=== PATIENT | female | born 1955 | race Caucasian/White ===

== ENCOUNTER → 2018-02-24 | Outpatient (CLI) | payer BC ==
--- NOTE | 2018-02-27 09:53 | MM ---
Reason for exam: screening (asymptomatic). Last mammogram was performed 2 years and 8 months ago. History: Patient is postmenopausal. Physical Findings: A clinical breast exam by your physician is recommended on an annual basis and results should be correlated with mammographic findings. MG Screening Mammo w CAD Bilateral CC and MLO view(s) were taken. Prior study comparison: July 24, 2008, bilateral digital screening mammogram. May 29, 2002, bilateral screening mammogram. There are scattered fibroglandular densities. No significant changes when compared with prior studies. ASSESSMENT: Benign, BI-RAD 2 RECOMMENDATION: Routine screening mammogram of both breasts in 1 year.
== END | disposition home or self-care (01) ==
LOC: RADMAMWWP 13:53
PROVIDERS: ATTEND Family Medicine
DX: Z12.31 Encounter for screening mammogram for malignant neoplasm of breast (principal)
CPT/HCPCS: 77067

== ENCOUNTER 2019-08-05 15:08 | Emergency (ER) | payer OTHER, BC ==
[2019-08-05] MEDS ORDERED: HYDROcodone/APAP 5-325MG 1 EACH TAB PO STA (15:17)
[2019-08-05 15:26] VITALS: RESP 18
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
[2019-08-05 16:07] LABS: Glucose,Whole Blood 89 mg/dL (75-99)
[2019-08-05 16:21] VITALS: BP 172/83; PULSE 72
[2019-08-05 16:24] VITALS: TEMP 98.3
== END 2019-08-05 16:39 | disposition home or self-care (01) ==
LOC: EC 15:08
DX: S16.1XXA Strain of muscle, fascia and tendon at neck level, initial encounter (principal); G31.9 Degenerative disease of nervous system, unspecified; V89.2XXA Person injured in unspecified motor-vehicle accident, traffic, initial encounter; Y92.410 Unspecified street and highway as the place of occurrence of the external cause
CPT/HCPCS: 36415; 70450; 72125; 93005; 99284

== ENCOUNTER → 2019-10-30 | Outpatient (CLI) | payer BC ==
--- NOTE | 2019-10-30 08:32 | US ---
EXAMINATION TYPE: US abdomen complete DATE OF EXAM: 10/30/2019 COMPARISON: US CLINICAL HISTORY: D72.819 leukocytopenia, D69.6 Thrombocytopenia; diabetic; HTN; TIA; high cholestero l; meds for depression and anxiety; HT5'7", [id number] EXAM MEASUREMENTS: Liver Length: 16.6 cm Gallbladder Wall: 0.2 cm CBD: 0.4 cm Spleen: 17.1 x 16.4 x 6.1 cm Right Kidney: 9.6 x 5.6 x 4.1 cm Left Kidney: 10.7 x 5.1 x 4.9 cm Pancreas: Within normal limits Liver: There is increased echogenicity of the hepatic parenchyma with diminished visualization of th e portal triads most commonly relating to hepatic steatosis and limiting evaluation for underlying he patic masses. Gallbladder: wnl, Phrygian Cap is noted Evidence for sonographic Shelby's sign: no CBD: wnl Spleen: enlarged as is size is greater than 14.0 cm Right Kidney: No hydronephrosis or masses seen Left Kidney: No hydronephrosis or masses seen Upper IVC: wnl Abd Aorta: size is wnl, intimal wall thickening is noted distally IMPRESSION: 1. Splenomegaly with the spleen measuring up to 17.1 cm. 2. Sonographic findings most commonly related to hepatic steatosis. Correlate with liver function guerda ts.
== END | disposition home or self-care (01) ==
LOC: RADUSWWP 06:51
PROVIDERS: ATTEND Internal Medicine Hematology & Oncology
DX: K76.0 Fatty (change of) liver, not elsewhere classified (principal); R16.1 Splenomegaly, not elsewhere classified; D72.819 Decreased white blood cell count, unspecified; D69.6 Thrombocytopenia, unspecified
CPT/HCPCS: 76700

== ENCOUNTER → 2021-08-03 | Outpatient (CLI) | payer BC, MEDICARE ==
[2021-08-03 15:39] LABS: Basophils # (A) 0 X 10*3/uL (0.00-0.10); Basophils % (A) 0 %; Eosinophils # (A) 0.02 X 10*3/uL (0.04-0.35); Eosinophils % (A) 0.8 %; HCT 39.2 % (37.2-46.3); HGB 12.8 g/dL (12.0-15.0); Lymphocytes # (A) 0.77 X 10*3/uL (0.90-5.00); Lymphocytes % (A) 29.6 %; MCH 32.2 pg (27.0-32.0); MCHC 32.7 g/dL (32.0-37.0); MCV 98.5 fL (80.0-97.0); Mean Platelet Volume 11.2 fL (9.5-12.2); Monocytes # (A) 0.18 X 10*3/uL (0.20-1.00); Monocytes % (A) 6.9 %; Neutrophils # (A) 1.62 X 10*3/uL (1.80-7.70); Neutrophils % (A) 62.3 %; Platelet Count 102 X 10*3/uL (140-440); RBC 3.98 X 10*6/uL (4.10-5.20); RDW 11.8 % (11.5-14.5)
[2021-08-03 16:28] LABS: INR 1.04 (0.90-1.11); Prothrombin Time 11.3 sec (9.9-11.9)
== END | disposition home or self-care (01) ==
LOC: LABWHC1 11:24
PROVIDERS: ATTEND Internal Medicine Gastroenterology
DX: R16.2 Hepatomegaly with splenomegaly, not elsewhere classified (principal)
CPT/HCPCS: 36415; 80053; 82105; 82140; 85025; 85610

== ENCOUNTER 2022-06-22 14:00 | Emergency (ER) | payer BC, MEDICARE ==
[2022-06-23] MEDS ORDERED: SODIUM CHLORIDE 0.9% 500 ML 500 ML IV STA (06:16)
--- NOTE | 2022-06-23 06:23 | ED ---
General Adult HPI - General Stated complaint: not feeling well Time Seen by Provider: 06/23/22 06:01 Source: patient, RN notes reviewed Mode of arrival: ambulatory Limitations: no limitations - History of Present Illness Initial comments: This a 66-year-old female presents emergency Department with chief complaint of abdominal pain, possible mass. Patient states she hadn't been feeling well with her PCP Dr. Salazar palpated her abdomen felt there may be a mass or told her that her liver dropped. Patient states she has known liver cirrhosis from fatty liver disease. Patient states that she has no increasing nausea vomiting diarrhea constipation or change in bowel habits no dysuria no hematuria no fevers chills no chest pain she does complain of mild upper abdominal disco mfort. - Related Data Allergies Allergy/AdvReac Type Severity Reaction Status Date / Time No Known Allergies Allergy Verified 06/23/22 06:34 Review of Systems ROS Statement: Those systems with pertinent positive or pertinent negative responses have been documented in the HPI. ROS Other: All systems not noted in ROS Statement are negative. General Exam Limitations: no limitations General appearance: alert, in no apparent distress Head exam: Present: atraumatic, normocephalic, normal inspection Eye exam: Present: normal appearance, PERRL, EOMI. Absent: scleral icterus, conjunctival injection, periorbital swelling ENT exam: Present: normal exam, mucous membranes moist Respiratory exam: Present: normal lung sounds bilaterally. Absent: respiratory distress, wheezes, rales, rhonchi, stridor Cardiovascular Exam: Present: regular rate, normal rhythm, normal heart sounds. Absent: systolic murmur, diastolic murmur, rubs, gallop, clicks GI/Abdominal exam: Present: soft, tenderness, normal bowel sounds. Absent: distended, guarding, rebound, rigid Back exam: Absent: CVA tenderness (R), CVA tenderness (L) Neurological exam: Present: alert Skin exam: Present: warm, dry, intact, normal color. Absent: rash Medical Decision Making - Medical Decision Making 66-year-old female presents emergency Department for possible mass. CT of the abdomen and pelvis are obtained does show enlarged spleen, liver patient has known large liver from fatty liver disease, liver cirrhosis. Patient labs show no acute findings remaining CT did not reveal any acute findings. Patient will be discharged in stable condition return parameters were discussed. - Lab Data Result diagrams: 06/23/22 06:44 06/23/22 06:44 Lab Results 06/23/22 06/23/22 06/23/22 Range/Units 06:44 06:44 06:44 WBC 3.6 L (3.8-10.6) k/uL RBC 4.09 (3.80-5.40) m/uL Hgb 13.3 (11.4-16.0) gm/dL Hct 39.1 (34.0-46.0) % MCV 95.5 (80.0-100.0) fL MCH 32.6 (25.0-35.0) pg MCHC 34.1 (31.0-37.0) g/dL RDW 12.9 (11.5-15.5) % Plt Count 108 L (150-450) k/uL MPV 8.1 Neutrophils % 73 % Lymphocytes % 16 % Monocytes % 8 % Eosinophils % 1 % Basophils % 0 % Neutrophils # 2.6 (1.3-7.7) k/uL Lymphocytes # 0.6 L (1.0-4.8) k/uL Monocytes # 0.3 (0-1.0) k/uL Eosinophils # 0.0 (0-0.7) k/uL Basophils # 0.0 (0-0.2) k/uL PT 10.8 (9.0-12.0) sec INR 1.0 (<1.2) APTT 25.5 (22.0-30.0) sec Sodium 136 L (137-145) mmol/L Potassium 4.6 (3.5-5.1) mmol/L Chloride 102 (98-107) mmol/L Carbon Dioxide 25 (22-30) mmol/L Anion Gap 9 mmol/L BUN 21 H (7-17) mg/dL Creatinine 0.86 (0.52-1.04) mg/dL Est GFR (CKD-EPI)AfAm 82 (>60 ml/min/1.73 sqM) Est GFR (CKD-EPI)NonAf 71 (>60 ml/min/1.73 sqM) Glucose 119 H (74-99) mg/dL Calcium 8.9 (8.4-10.2) mg/dL Total Bilirubin 0.4 (0.2-1.3) mg/dL AST 39 H (14-36) U/L ALT 39 H (4-34) U/L Alkaline Phosphatase 114 (38-126) U/L Total Protein 7.0 (6.3-8.2) g/dL Albumin 4.2 (3.5-5.0) g/dL Lipase 145 (23-300) U/L Disposition Clinical Impression: Hepatomegaly Disposition: HOME SELF-CARE Condition: Stable Instructions (If sedation given, give patient instructions): Non-Alcoholic Fatty Liver Disease (ED) Additional Instructions: Please return to the Emergency Department if symptoms worsen or any other concerns. Is patient prescribed a controlled substance at d/c from ED?: No Referrals: None,Stated [REFERRING] - 1-2 days Time of Disposition: 08:41
[2022-06-23 07:19] LABS: Basophils % (A) 0 %; Eosinophils % (A) 1 %; HCT 39.1 % (34.0-46.0); HGB 13.3 gm/dL (11.4-16.0); Lymphocytes # (A) 0.6 k/uL (1.0-4.8); Lymphocytes % (A) 16 %; MCH 32.6 pg (25.0-35.0); MCHC 34.1 g/dL (31.0-37.0); MCV 95.5 fL (80.0-100.0); Mean Platelet Volume 8.1; Monocytes # (A) 0.3 k/uL (0-1.0); Monocytes % (A) 8 %; Neutrophils # (A) 2.6 k/uL (1.3-7.7); Neutrophils % (A) 73 %; Platelet Count 108 k/uL (150-450); RBC 4.09 m/uL (3.80-5.40); RDW 12.9 % (11.5-15.5); WBC 3.6 k/uL (3.8-10.6)
[2022-06-23 07:20] LABS: Albumin 4.2 g/dL (3.5-5.0); Calcium 8.9 mg/dL (8.4-10.2); Potassium 4.6 mmol/L (3.5-5.1); Total Bilirubin 0.4 mg/dL (0.2-1.3)
[2022-06-23 07:32] LABS: Partial Thromboplastin Time 25.5 sec (22.0-30.0); Prothrombin Time 10.8 sec (9.0-12.0)
[2022-06-23 08:58] VITALS: BP 174/69; PULSE 74; RESP 18
--- NOTE | 2022-06-24 14:10 | CT ---
EXAMINATION TYPE: CT abdomen pelvis w con DATE OF EXAM: 06/23/2022 COMPARISON: None HISTORY: Abdominal pain with abnormal physical exam CT DLP: 2778.9 mGycm Automated exposure control for dose reduction was used. TECHNIQUE: Helical acquisition of images from the lung bases through the pelvis have been completed. CONTRAST: Patient received 50 cc Isovue-300 IV, no oral contrast FINDINGS: Poor enhancement with contrast could compromise sensitivity. Possible small hiatal hernia p resent. LUNG BASES: No significant abnormality is appreciated. AORTA: No significant abnormality is appreciated. LIVER/GB: Liver is enlarged. Gallbladder is unremarkable.. PANCREAS: Pancreas is somewhat fatty replaced. SPLEEN: There is splenomegaly, AP dimension is approximately 16 cm. ADRENALS: No significant abnormality is seen. KIDNEYS: No significant abnormality is seen. REPRODUCTIVE ORGANS: Not seen BOWEL: Diverticular changes associated with the colon, retained fecal debris present within the colo n FREE AIR: No Free Air visible. ASCITES: None visible. PELVIC ADENOPATHY: None visualized. RETROPERITONEAL ADENOPATHY: No Retroperitoneal Adenopathy visible. URINARY BLADDER: No significant abnormality is seen. OSSEOUS STRUCTURES: There is degenerative disc changes, facet arthropathy especially in the lumbar s pine IMPRESSION: HEPATOSPLENOMEGALY. POSTOP CHANGES. LIMITED CONTRAST ENHANCEMENT, CORRELATE FOR FECAL STASIS. PULMONA RY REPORT OFFERED AT THE TIME OF PERFORMANCE OF THE EXAM
== END 2022-06-23 08:58 | disposition home or self-care (01) ==
LOC: EDSEX → MERGE 14:00 → EC 14:00
DX: R16.0 Hepatomegaly, not elsewhere classified (principal)
CPT/HCPCS: 36415; 80053; 83690; 85025; 85610; 85730; 74177; 99284; 96360; Q9967

== ENCOUNTER → 2024-05-03 | Outpatient (CLI) | payer MEDICARE ==
[2024-05-03 15:40] LABS: ALT 32 U/L (8-44); AST 30 U/L (13-35); Albumin 4.1 g/dL (3.8-4.9); Albumin/Globulin Ratio 1.78 Ratio (1.60-3.17); Alkaline Phosphatase 90 U/L (41-126); BUN/Creat Ratio 15.23 Ratio (12.00-20.00); Blood Urea Nitrogen 19.8 mg/dL (9.0-27.0); Carbon Dioxide 23.3 mmol/L (21.6-31.8); Chloride 102 mmol/L (96-109); Globulin 2.3 g/dL (1.6-3.3); Glucose 99 mg/dL (70-110); Potassium 5.6 mmol/L (3.5-5.5); Sodium 137 mmol/L (135-145); Total Bilirubin 0.3 mg/dL (0.3-1.2); Total Protein 6.4 g/dL (6.2-8.2)
[2024-05-03 15:45] LABS: Basophils # (A) 0.01 X 10*3/uL (0.00-0.10); Basophils % (A) 0.4 %; Eosinophils # (A) 0.03 X 10*3/uL (0.04-0.35); Eosinophils % (A) 1.1 %; HCT 35.1 % (37.2-46.3); HGB 11.8 g/dL (12.0-15.0); Immature Grans, Automated 0 %; Lymphocytes # (A) 0.81 X 10*3/uL (0.90-5.00); MCH 32.5 pg (27.0-32.0); MCHC 33.6 g/dL (32.0-37.0); MCV 96.7 FL (80.0-97.0); Mean Platelet Volume 11.2 FL (9.5-12.2); Monocytes # (A) 0.24 X 10*3/uL (0.20-1.00); Monocytes % (A) 9.2 %; NRBC Per 100 WBC 0 X 10*3/uL (0.00-0.01); Neutrophils # (A) 1.52 X 10*3/uL (1.80-7.70); Neutrophils % (A) 58.3 %; Platelet Count 100 X 10*3/uL (140-440); RBC 3.63 X 10*6/uL (4.10-5.20); RDW 12.1 % (11.5-14.5); WBC 2.61 X 10*3/uL (4.50-10.00)
== END | disposition home or self-care (01) ==
LOC: LABWHC1 12:44
PROVIDERS: ATTEND Family Medicine
DX: I10 Essential (primary) hypertension (principal)
CPT/HCPCS: 36415; 80053; 85025

== ENCOUNTER 2024-12-18 10:21 | Emergency (ER) | payer MEDICARE ==
[2024-12-18 12:10] LABS: INR 1.1 (<1.2); Partial Thromboplastin Time 26.2 sec (22.0-30.0); Prothrombin Time 11.6 sec (10.0-12.5)
--- NOTE | 2024-12-18 12:10 | ED ---
General Adult HPI - General Chief complaint: Upper Respiratory Infection Stated complaint: cough Time Seen by Provider: 12/18/24 10:36 Source: patient, family, RN notes reviewed Mode of arrival: wheelchair Limitations: no limitations - History of Present Illness Initial comments: 69-year-old female presents to the emergency department for evaluation of cough and shortness of breath. Patient states that this has been going on for around 1 week. She states that her coughing is worse when she lies down at night. She does note that it is been improving somewhat. She denies fever, chills, lower extremity edema. She is on Eliquis. She denies missing any doses of her medication. She has a history of cirrhosis of the liver. - Related Data Home Medications Medication Instructions Recorded Confirmed ALPRAZolam [Xanax] 0.25 mg PO HS 07/14/22 07/14/22 Apixaban [Eliquis] 5 mg PO BID 07/14/22 07/14/22 Calcium Carbonate [Calcium] 1,200 mg PO DAILY 07/14/22 07/14/22 Citalopram Hydrobromide [CeleXA] 20 mg PO BID 07/14/22 07/14/22 Ferrous Sulfate [Feosol] 325 mg PO HS 07/14/22 07/14/22 Gabapentin [Neurontin] 400 mg PO BID 07/14/22 07/14/22 Loratadine 10 mg PO DAILY 07/14/22 07/14/22 Multivitamins, Thera [Multivitamin 1 tab PO DAILY 07/14/22 07/14/22 (formulary)] Omeprazole 20 mg PO BID 07/14/22 07/14/22 Simvastatin [Zocor] 20 mg PO HS 07/14/22 07/14/22 Spironolactone 50 mg PO DAILY 07/14/22 07/14/22 Vitamin E (Dl,Tocopheryl Acet) 400 unit PO DAILY 07/14/22 07/14/22 [Vitamin E (400 Iu = 180 mg)] amLODIPine [Norvasc] 10 mg PO DAILY 07/14/22 07/14/22 lisinopriL [Zestril] 20 mg PO DAILY 07/14/22 07/14/22 metFORMIN HCL [Glucophage] 500 mg PO DAILY 07/14/22 07/14/22 rOPINIRole HCL [Requip] 0.5 mg PO HS 07/14/22 07/14/22 rOPINIRole HCL [Requip] 2 mg PO HS 07/14/22 07/14/22 traZODone HCL 100 mg PO HS 07/14/22 07/14/22 Allergies Allergy/AdvReac Type Severity Reaction Status Date / Time No Known Allergies Allergy Verified 06/23/22 11:20 Review of Systems ROS Statement: Those systems with pertinent positive or pertinent negative responses have been documented in the HPI. ROS Other: All systems not noted in ROS Statement are negative. Past Medical History Past Medical History: CVA/TIA, Diabetes Mellitus, GERD/Reflux, Hyperlipidemia, Hypertension, Liver Disease, Osteoarthritis (OA) Additional Past Medical History / Comment(s): Cirrhosis, fatty liver disease, hx ascites. Restless leg syndrome. 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 Hx. heart murmor, irregular heart rate- sees Dr. Bautista History of Any Multi-Drug Resistant Organisms: None Reported Past Surgical History: Hysterectomy Past Anesthesia/Blood Transfusion Reactions: No Reported Reaction Past Psychological History: Anxiety, Bipolar, Depression Smoking Status: Former smoker Past Alcohol Use History: None Reported Past Drug Use History: None Reported General Exam Limitations: no limitations General appearance: alert, in no apparent distress Head exam: Present: atraumatic, normocephalic, normal inspection Eye exam: Present: normal appearance, PERRL, EOMI. Absent: scleral icterus, conjunctival injection, periorbital swelling Course Vital Signs 12/18/24 12/18/24 10:31 13:44 Temperature 98.2 F 98.8 F Pulse Rate 68 82 Respiratory 16 20 Rate Blood Pressure 121/57 98/61 O2 Sat by Pulse 93 L 96 Oximetry Medical Decision Making - Medical Decision Making Was pt. sent in by a medical professional or institution (, PA, [employer], urgent care, hospital, or long term...) When possible be specific @ -No Did you speak to anyone other than the patient for history (EMS, parent, family, police, friend...)? What history was obtained from this source @ -No Did you review nursing and triage notes (agree or disagree)? Why? @ -I reviewed and agree with nursing and triage notes Were old charts reviewed (outside hosp., previous admission, EMS record, old EKG, old radiological studies, urgent care reports/EKG's, long term records)? Report findings @ -No old charts were reviewed Differential Diagnosis (chest pain, altered mental status, abdominal pain women, abdominal pain men, vaginal bleeding, weakness, fever, dyspnea, syncope, headache, dizziness, GI bleed, back pain, seizure, CVA, palpatations, mental health, musculoskeletal)? @ -Differential Dyspnea: Coronary syndrome, arrhythmia, tamponade, asthma, COPD, pulmonary embolism, pneumonia, pneumothorax, pulmonary effusion, anaphylaxis, diabetic ketoacidosis, flailed chest, pulmonary contusion, diaphragmatic rupture, anemia, neuromuscular, this is not meant to be an all-inclusive list. EKG interpreted by me (3pts min.). @ -EKG at 1144 shows sinus rhythm rate 65, [place] 175, QRS 85, QTQTc [id number] X-rays interpreted by me (1pt min.). @ -Chest x-ray shows no evidence of acute process CT interpreted by me (1pt min.). @ -None done U/S interpreted by me (1pt. min.). @ -None done What testing was considered but not performed or refused? (CT, X-rays, U/S, labs)? Why? @ -None What meds were considered but not given or refused? Why? @ -None Did you discuss the management of the patient with other professionals (professionals i.e. , PA, [employer], lab, RT, psych nurse, executive secretary social welfare, full stack engineer, teacher, operations officer trust department, disease case manager rn)? Give summary @ -No Was smoking cessation discussed for >3mins.? @ -No Was critical care preformed (if so, how long)? @ -No Were there social determinants of health that impacted care today? How? (Homelessness, low income, unemployed, alcoholism, drug addiction, transportation, low edu. Level, literacy, decrease access to med. care, assisted, rehab)? @ -No Was there de-escalation of care discussed even if they declined (Discuss DNR or withdrawal of care, Hospice)? DNR status @ -No What co-morbidities impacted this encounter? (DM, HTN, Smoking, COPD, CAD, Cancer, CVA, ARF, Chemo, Hep., AIDS, mental health diagnosis, sleep apnea, morbid obesity)? @ -None Was patient admitted / discharged? Hospital course, mention meds given and route, prescriptions, significant lab abnormalities, going to OR and other pertinent info. @ -Discharge. Patient presented emergency department for evaluation of cough x 1 week.Laboratory studies obtained revealing WBC of 3.5 which is baseline for the patient; normal coagulation studies; BUN 21, creatinine 1.22; BNP within normal limits at 134; patient was negative for COVID, influenza, RSV. Chest x- ray obtained revealing no acute process. Vital signs stable. She will be discharged home. Advised follow-up with her PCP. She is understanding. At this time. Stable at time of discharge. Case discussed with Dr. Navarro. Undiagnosed new problem with uncertain prognosis? @ -No Drug Therapy requiring intensive monitoring for toxicity (Heparin, Nitro, Insulin, Cardizem)? @ -No Were any procedures done? @ -No Diagnosis/symptom? @ -URI Acute, or Chronic, or Acute on Chronic? @ -Acute Uncomplicated (without systemic symptoms) or Complicated (systemic symptoms)? @ -Uncomplicated Side effects of treatment? @ -No Exacerbation, Progression, or Severe Exacerbation? @ -No Poses a threat to life or bodily function? How? (Chest pain, USA, LA, pneumonia, PE, COPD, DKA, ARF, appy, cholecystitis, CVA, Diverticulitis, Homicidal, [place] icidal, threat to staff... and all critical care pts) @ -No - Lab Data Result diagrams: 12/18/24 11:38 12/18/24 11:38 Lab Results 12/18/24 12/18/24 12/18/24 Range/Units 11:38 11:38 11:38 WBC 3.5 L (3.8-10.6) k/uL RBC 4.24 (3.80-5.40) m/uL Hgb 13.0 (11.4-16.0) gm/dL Hct 41.4 (34.0-46.0) % MCV 97.5 (80.0-100.0) fL MCH 30.7 (25.0-35.0) pg MCHC 31.5 (31.0-37.0) g/dL RDW 11.9 (11.5-15.5) % Plt Count 130 L (150-450) k/uL MPV 8.0 Neutrophils % 71 % Lymphocytes % 19 % Monocytes % 7 % Eosinophils % 1 % Basophils % 0 % Neutrophils # 2.5 (1.3-7.7) k/uL Lymphocytes # 0.7 L (1.0-4.8) k/uL Monocytes # 0.3 (0-1.0) k/uL Eosinophils # 0.1 (0-0.7) k/uL Basophils # 0.0 (0-0.2) k/uL PT 11.6 (10.0-12.5) sec INR 1.1 (<1.2) APTT 26.2 (22.0-30.0) sec Sodium 136 L (137-145) mmol/L Potassium 4.7 (3.5-5.1) mmol/L Chloride 100 (98-107) mmol/L Carbon Dioxide 29 (22-30) mmol/L Anion Gap 7 mmol/L BUN 21 H (7-17) mg/dL Creatinine 1.22 H (0.52-1.04) mg/dL Est GFR (CKD-EPI)AfAm 52 (>60 ml/min/1.73 sqM) Est GFR (CKD-EPI)NonAf 45 (>60 ml/min/1.73 sqM) Glucose 103 H (74-99) mg/dL Calcium 9.1 (8.4-10.2) mg/dL Total Bilirubin 0.7 (0.2-1.3) mg/dL AST 36 (14-36) U/L ALT 42 H (4-34) U/L Alkaline Phosphatase 96 (38-126) U/L NT-Pro-B Natriuret Pep 134 pg/mL Total Protein 6.9 (6.3-8.2) g/dL Albumin 4.1 (3.5-5.0) g/dL Influenza Type A (PCR) (Not Detectd) Influenza Type B (PCR) (Not Detectd) RSV (PCR) (Not Detectd) SARS-CoV-2 (PCR) (Not Detectd) 12/18/24 Range/Units 11:38 WBC (3.8-10.6) k/uL RBC (3.80-5.40) m/uL Hgb (11.4-16.0) gm/dL Hct (34.0-46.0) % MCV (80.0-100.0) fL MCH (25.0-35.0) pg MCHC (31.0-37.0) g/dL RDW (11.5-15.5) % Plt Count (150-450) k/uL MPV Neutrophils % % Lymphocytes % % Monocytes % % Eosinophils % % Basophils % % Neutrophils # (1.3-7.7) k/uL Lymphocytes # (1.0-4.8) k/uL Monocytes # (0-1.0) k/uL Eosinophils # (0-0.7) k/uL Basophils # (0-0.2) k/uL PT (10.0-12.5) sec INR (<1.2) APTT (22.0-30.0) sec Sodium (137-145) mmol/L Potassium (3.5-5.1) mmol/L Chloride (98-107) mmol/L Carbon Dioxide (22-30) mmol/L Anion Gap mmol/L BUN (7-17) mg/dL Creatinine (0.52-1.04) mg/dL Est GFR (CKD-EPI)AfAm (>60 ml/min/1.73 sqM) Est GFR (CKD-EPI)NonAf (>60 ml/min/1.73 sqM) Glucose (74-99) mg/dL Calcium (8.4-10.2) mg/dL Total Bilirubin (0.2-1.3) mg/dL AST (14-36) U/L ALT (4-34) U/L Alkaline Phosphatase (38-126) U/L NT-Pro-B Natriuret Pep pg/mL Total Protein (6.3-8.2) g/dL Albumin (3.5-5.0) g/dL Influenza Type A (PCR) Not Detected (Not Detectd) Influenza Type B (PCR) Not Detected (Not Detectd) RSV (PCR) Not Detected (Not Detectd) SARS-CoV-2 (PCR) Not Detected (Not Detectd) Disposition Clinical Impression: URI (upper respiratory infection) Disposition: HOME SELF-CARE Condition: Stable Instructions (If sedation given, give patient instructions): Upper Respiratory Infection (ED) Additional Instructions: Please follow up with your primary care provider. Return to the emergency department for new or worsening symptoms. Is patient prescribed a controlled substance at d/c from ED?: No Referrals: Moses Salazar MD [Primary Care Provider] - 1-2 days
[2024-12-18 12:11] LABS: Basophils % (A) 0 %; Eosinophils # (A) 0.1 k/uL (0-0.7); Eosinophils % (A) 1 %; HCT 41.4 % (34.0-46.0); Lymphocytes # (A) 0.7 k/uL (1.0-4.8); Lymphocytes % (A) 19 %; MCH 30.7 pg (25.0-35.0); MCHC 31.5 g/dL (31.0-37.0); MCV 97.5 fL (80.0-100.0); Monocytes # (A) 0.3 k/uL (0-1.0); Monocytes % (A) 7 %; Neutrophils # (A) 2.5 k/uL (1.3-7.7); Neutrophils % (A) 71 %; Platelet Count 130 k/uL (150-450); RBC 4.24 m/uL (3.80-5.40); RDW 11.9 % (11.5-15.5); WBC 3.5 k/uL (3.8-10.6)
[2024-12-18 12:31] LABS: Influenza A Not Detected (Not Detectd); Influenza B Not Detected (Not Detectd); RSV Not Detected (Not Detectd)
--- NOTE | 2024-12-18 12:35 | XR ---
EXAMINATION TYPE: XR chest 2V DATE OF EXAM: 12/18/2024 12:27 PM COMPARISON: None TECHNIQUE: XR chest 2V Frontal and lateral views of the chest. CLINICAL INDICATION:Female, 69 years old with history of difficulty breathing; FINDINGS: Lungs/Pleura: There is no evidence of pleural effusion, focal consolidation, or pneumothorax. Pulmonary vascularity: Unremarkable. Heart/mediastinum: Cardiomediastinal silhouette is unremarkable. Musculoskeletal: Multiple level degenerative disc disease changes seen throughout the spine. IMPRESSION: No acute cardiopulmonary disease/process. [facility], , 12/18/2024 12:32 PM
[2024-12-18 12:46] LABS: ALT 42 U/L (4-34); AST 36 U/L (14-36); African American GFR (CKD) 52 (>60 ml/min/1.73 sqM); Albumin 4.1 g/dL (3.5-5.0); Alkaline Phosphatase 96 U/L (38-126); Anion Gap 7 mmol/L; Blood Urea Nitrogen 21 mg/dL (7-17); Calcium 9.1 mg/dL (8.4-10.2); Carbon Dioxide 29 mmol/L (22-30); Chloride 100 mmol/L (98-107); Glucose 103 mg/dL (74-99); Non-African American GFR(CKD) 45 (>60 ml/min/1.73 sqM); Potassium 4.7 mmol/L (3.5-5.1); Sodium 136 mmol/L (137-145); Total Bilirubin 0.7 mg/dL (0.2-1.3); Total Protein 6.9 g/dL (6.3-8.2)
[2024-12-18 12:51] LABS: NT-Pro-B-Type Natriuretic Pept 134 pg/mL
[2024-12-18 13:44] VITALS: BP 98/61; PULSE 82; RESP 20; TEMP 98.8
== END 2024-12-18 13:58 | disposition home or self-care (01) ==
LOC: EC 10:21
DX: J06.9 Acute upper respiratory infection, unspecified (principal); Z87.891 Personal history of nicotine dependence
CPT/HCPCS: 36415; 71046; 80053; 83880; 85025; 85610; 85730; 87636; 93005; 99284

== ENCOUNTER 2025-04-21 11:37 | Emergency (ER) | payer MEDICARE ==
[2025-04-21 11:56] VITALS: RESP 18; TEMP 98.1
--- NOTE | 2025-04-21 12:20 | ED ---
Nausea/Vomiting/Diarrhea HPI - General Chief complaint: Nausea/Vomiting/Diarrhea Stated complaint: Diarrhea Time Seen by Provider: 04/21/25 11:59 Source: patient, RN notes reviewed Mode of arrival: ambulatory Limitations: no limitations - History of Present Illness Initial comments: This is a 69-year-old female who presents to the emergency department for diarrhea. States that it started 6 days ago. She does have some generalized cramping and rumbling in her abdomen, but no johnnie pain. She has nausea but no vomiting. She tried taking Imodium, but states that it is no longer effective. The stool was initially somewhat formed but is now largely water. Believes that she is going 3 or 4 times a day. Denies any recent antibiotic use. However, she did just start Ozempic 3 weeks ago. MD complaint: nausea, diarrhea - Related Data Home Medications Medication Instructions Recorded Confirmed ALPRAZolam [Xanax] 0.25 mg PO HS 07/14/22 07/14/22 Apixaban [Eliquis] 5 mg PO BID 07/14/22 07/14/22 Calcium Carbonate [Calcium] 1,200 mg PO DAILY 07/14/22 07/14/22 Citalopram Hydrobromide [CeleXA] 20 mg PO BID 07/14/22 07/14/22 Ferrous Sulfate [Feosol] 325 mg PO HS 07/14/22 07/14/22 Gabapentin [Neurontin] 400 mg PO BID 07/14/22 07/14/22 Loratadine 10 mg PO DAILY 07/14/22 07/14/22 Multivitamins, Thera [Multivitamin 1 tab PO DAILY 07/14/22 07/14/22 (formulary)] Omeprazole 20 mg PO BID 07/14/22 07/14/22 Simvastatin [Zocor] 20 mg PO HS 07/14/22 07/14/22 Spironolactone 50 mg PO DAILY 07/14/22 07/14/22 Vitamin E (Dl,Tocopheryl Acet) 400 unit PO DAILY 07/14/22 07/14/22 [Vitamin E (400 Iu = 180 mg)] amLODIPine [Norvasc] 10 mg PO DAILY 07/14/22 07/14/22 lisinopriL [Zestril] 20 mg PO DAILY 07/14/22 07/14/22 metFORMIN HCL [Glucophage] 500 mg PO DAILY 07/14/22 07/14/22 rOPINIRole HCL [Requip] 0.5 mg PO HS 07/14/22 07/14/22 rOPINIRole HCL [Requip] 2 mg PO HS 07/14/22 07/14/22 traZODone HCL 100 mg PO HS 07/14/22 07/14/22 Previous Rx's Medication Instructions Recorded Benzonatate [Tessalon Perles] 100 mg PO TID PRN #12 capsule 12/18/24 Dicyclomine [Bentyl] 20 mg PO QID PRN #30 tablet 04/21/25 Diphenoxylate HCl/Atropine 1 - 2 tab PO QID PRN 3 Days #24 tab 04/21/25 [Lomotil 2.5-0.025 mg Tablet] Ondansetron Odt [Zofran Odt] 4 mg PO Q8HR PRN #15 tab 04/21/25 Allergies Allergy/AdvReac Type Severity Reaction Status Date / Time No Known Allergies Allergy Verified 04/21/25 11:56 Review of Systems ROS Statement: Those systems with pertinent positive or pertinent negative responses have been documented in the HPI. ROS Other: All systems not noted in ROS Statement are negative. Past Medical History Past Medical History: CVA/TIA, Diabetes Mellitus, GERD/Reflux, Hyperlipidemia, Hypertension, Liver Disease, Osteoarthritis (OA) Additional Past Medical History / Comment(s): Cirrhosis, fatty liver disease, hx ascites. Restless leg syndrome. 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 Hx. heart murmor, irregular heart rate- sees Dr. Bautista History of Any Multi-Drug Resistant Organisms: None Reported Past Surgical History: Hysterectomy Past Anesthesia/Blood Transfusion Reactions: No Reported Reaction Past Psychological History: Anxiety, Bipolar, Depression Smoking Status: Former smoker Past Alcohol Use History: None Reported Past Drug Use History: None Reported General Exam Limitations: no limitations General appearance: alert, in no apparent distress Head exam: Present: atraumatic, normocephalic, normal inspection Respiratory exam: Present: normal lung sounds bilaterally. Absent: respiratory distress, wheezes, rales, rhonchi, stridor Cardiovascular Exam: Present: regular rate, normal rhythm GI/Abdominal exam: Present: soft. Absent: distended, tenderness Neurological exam: Present: alert, oriented X3, CN II-XII intact Psychiatric exam: Present: normal affect, normal mood Skin exam: Present: warm, dry, intact, normal color. Absent: rash Course Vital Signs 04/21/25 04/21/25 11:53 14:23 Temperature 98.1 F Pulse Rate 68 65 Respiratory 18 18 Rate Blood Pressure 113/69 127/58 O2 Sat by Pulse 96 96 Oximetry Medical Decision Making - Medical Decision Making This is a 69-year-old female who presents to the emergency department for diarrhea. Was pt. sent in by a medical professional or institution? @ -No Did you speak to anyone other than the patient for history? @ -No Did you review nursing and triage notes? @ -Yes, and I agree, it is accurate with regards to the patient's symptoms. Were old charts reviewed? @ -No Differential Diagnosis? @ -Viral syndrome, bacterial illness, C. difficile, dietary intake, medication induced, this is not meant to be an all-inclusive list. EKG interpreted by me (3pts min.)? @ -Not obtained X-rays interpreted by me (1pt min.)? @ -Not obtained CT interpreted by me (1pt min.)? @ -Not obtained U/S interpreted by me (1pt. min.)? @ -Not obtained What testing was considered but not performed? (CT, X-rays, U/S, labs)? Why? @ -None What meds were considered but not given? Why? @ -None Did you discuss the management of the patient with other professionals? @ -No Did you reconcile home meds? @ -No Was smoking cessation discussed for >3mins.? @ -No Was critical care preformed (if so, how long)? @ -No Were there social determinants of health that impacted care today? How? (Homelessness, low income, unemployed, alcoholism, drug addiction, transportation, low edu. Level, literacy, decrease access to med. care, long-term, rehab)? @ -No Was there de-escalation of care discussed even if they declined? (Discuss DNR or withdrawal of care, Hospice)? @ -No What co-morbidities impacted this encounter? (DM, HTN, Smoking, COPD, CAD, Cancer, CVA, Hep., AIDS, mental health diagnosis, sleep apnea, morbid obesity)? @ -DM, HLD, HTN Was patient admitted / discharged? @ -Discharged. Lab work potentially suggestive of mild dehydration and is otherwise unremarkable. She was treated with IV fluids, Zofran, Lomotil, and Bentyl with improvement in symptoms. She was unable to provide a urine or stool sample in the emergency department. Prescription for Lomotil, Bentyl, and Zofran provided with dosing instructions reviewed. Advised she discuss the possibility of Ozempic as the cause of her symptoms with her primary care provider. Patient discharged home in stable condition. Case discussed with ED attending Dr. Navarro. Return precautions reviewed in depth, the patient is instructed to return to the emergency department with any new, worsening, or concerning symptoms. Patient verbalized understanding. Undiagnosed new problem with uncertain prognosis? @ -None Drug Therapy requiring intensive monitoring for toxicity (Heparin, Nitro, Insulin, Cardizem)? @ -None Were any procedures done? @ -None Diagnosis/symptom? @ -Diarrhea Acute, or Chronic, or Acute on Chronic? @ -Acute Uncomplicated (without systemic symptoms) or Complicated (systemic symptoms)? @ -Uncomplicated Side effects of treatment? @ -None Exacerbation, Progression, or Severe Exacerbation] @ -Not applicable Poses a threat to life or bodily function? @ -No - Lab Data Result diagrams: 04/21/25 12:26 04/21/25 12:26 Lab Results 04/21/25 04/21/25 Range/Units 12:26 12:26 WBC 4.36 L (4.50-10.00) 10*3/uL RBC 3.90 L (4.10-5.20) 10*6/uL Hgb 12.7 (12.0-15.0) g/dL Hct 36.2 L (37.2-46.3) % MCV 92.8 (80.0-97.0) fL MCH 32.6 H (27.0-32.0) pg MCHC 35.1 (32.0-37.0) g/dL Plt Count 102 L (140-440) 10*3/uL MPV 11.0 (9.5-12.2) fL Immature Gran % (Auto) 0.2 % Neutrophils % 68.9 % Lymphocytes % 22.0 % Monocytes % 8.0 % Eosinophils % 0.7 % Basophils % 0.2 % Immature Gran # 0.01 (0.00-0.04) 10*3/uL Neutrophils # 3.00 (1.80-7.70) 10*3/uL Lymphocytes # 0.96 (0.90-5.00) 10*3/uL Monocytes # 0.35 (0.20-1.00) 10*3/uL Eosinophils # 0.03 L (0.04-0.35) 10*3/uL Basophils # 0.01 (0.00-0.10) 10*3/uL Immature Plt Fraction 2.2 (1.1-6.1) % Sodium 135 L (137-145) mmol/L Potassium 4.5 (3.5-5.1) mmol/L Chloride 105 (98-107) mmol/L Carbon Dioxide 21 L (22-30) mmol/L Anion Gap 9 mmol/L BUN 23 H (7-17) mg/dL Creatinine 1.23 H (0.52-1.04) mg/dL Est GFR (CKD-EPI)AfAm 52 (>60 ml/min/1.73 sqM) Est GFR (CKD-EPI)NonAf 45 (>60 ml/min/1.73 sqM) Glucose 95 (74-99) mg/dL Calcium 9.6 (8.4-10.2) mg/dL Magnesium 2.1 (1.6-2.3) mg/dL Total Bilirubin 0.7 (0.2-1.3) mg/dL AST 23 (14-36) U/L ALT 23 (4-34) U/L Alkaline Phosphatase 91 (38-126) U/L Total Protein 6.7 (6.3-8.2) g/dL Albumin 4.0 (3.5-5.0) g/dL Lipase 80 (23-300) U/L Disposition Clinical Impression: Diarrhea Disposition: HOME SELF-CARE Instructions (If sedation given, give patient instructions): Acute Diarrhea (ED) Additional Instructions: Return to the emergency department with any new, worsening, or concerning symptoms. You can take the Lomotil as needed for the diarrhea. The Bentyl can be taken up to 4 times daily. This will help with both abdominal cramping and diarrhea. Take the Zofran up to every 8 hours as needed for nausea and vomiting. Discuss the possibility of Ozempic contributing to your symptoms with your primary care provider. Make sure you also remain hydrated. Prescriptions: Dicyclomine [Bentyl] 20 mg PO QID PRN #30 tablet PRN Reason: Gi Upset Diphenoxylate HCl/Atropine [Lomotil 2.5-0.025 mg Tablet] 1 - 2 tab PO QID PRN 3 Days #24 tab PRN Reason: Diarrhea Ondansetron Odt [Zofran Odt] 4 mg PO Q8HR PRN #15 tab PRN Reason: Nausea And Vomiting Is patient prescribed a controlled substance at d/c from ED?: No Referrals: Moses Salazar MD [Primary Care Provider] - 1-2 days Time of Disposition: 13:55
[2025-04-21] MEDS: SODIUM CHLORIDE 0.9% 1,000 ML IV ONE (12:35)
[2025-04-21] MEDS: ONDANSETRON 4 MG/2 ML VIAL IVP STA (12:36)
[2025-04-21] MEDS: DIPHENOX-ATROP 2.5-0.025 MG 1 EACH TAB PO STA (12:36)
[2025-04-21] MEDS: DICYCLOMINE 10 MG/ML 2 ML AMP IM STA (12:36)
[2025-04-21 12:39] LABS: Basophils # (A) 0.01 10*3/uL (0.00-0.10); Basophils % (A) 0.2 %; Eosinophils # (A) 0.03 10*3/uL (0.04-0.35); Eosinophils % (A) 0.7 %; HCT 36.2 % (37.2-46.3); HGB 12.7 g/dL (12.0-15.0); Immature Platelet Fraction 2.2 % (1.1-6.1); Lymphocytes # (A) 0.96 10*3/uL (0.90-5.00); Lymphocytes % (A) 22.0 %; MCH 32.6 pg (27.0-32.0); MCHC 35.1 g/dL (32.0-37.0); MCV 92.8 fL (80.0-97.0); Monocytes # (A) 0.35 10*3/uL (0.20-1.00); Monocytes % (A) 8.0 %; Neutrophils # (A) 3.00 10*3/uL (1.80-7.70); Neutrophils % (A) 68.9 %; Platelet Count 102 10*3/uL (140-440); RBC 3.90 10*6/uL (4.10-5.20); RDW 12.0 % (11.5-14.5); WBC 4.36 10*3/uL (4.50-10.00)
[2025-04-21 12:59] LABS: ALT 23 U/L (4-34); AST 23 U/L (14-36); African American GFR (CKD) 52 (>60 ml/min/1.73 sqM); Albumin 4.0 g/dL (3.5-5.0); Alkaline Phosphatase 91 U/L (38-126); Anion Gap 9 mmol/L; Blood Urea Nitrogen 23 mg/dL (7-17); Calcium 9.6 mg/dL (8.4-10.2); Carbon Dioxide 21 mmol/L (22-30); Chloride 105 mmol/L (98-107); Glucose 95 mg/dL (74-99); Lipase 80 U/L (23-300); Magnesium 2.1 mg/dL (1.6-2.3); Non-African American GFR(CKD) 45 (>60 ml/min/1.73 sqM); Potassium 4.5 mmol/L (3.5-5.1); Sodium 135 mmol/L (137-145); Total Protein 6.7 g/dL (6.3-8.2)
[2025-04-21] MEDS: ONDANSETRON 4 MG ODT STARTER PACK 2 TAB BTL PO STA (14:02)
[2025-04-21] MEDS: DIPHENOX-ATROP STARTER PACK 8 TAB BTL PO STA (14:03)
[2025-04-21 14:26] VITALS: BP 127/58; PULSE 65
== END 2025-04-21 14:26 | disposition home or self-care (01) ==
LOC: EC 11:37
DX: R19.7 Diarrhea, unspecified (principal); E78.5 Hyperlipidemia, unspecified; I10 Essential (primary) hypertension; E11.9 Type 2 diabetes mellitus without complications; Z79.84 Long term (current) use of oral hypoglycemic drugs; Z87.891 Personal history of nicotine dependence
CPT/HCPCS: 36415; 80053; 83690; 83735; 85025; 99284; 96374; 96372; 96361; J0500; J2405; S0119